=== PATIENT | female | born 1995 | race African-American/Black ===

== ENCOUNTER 2018-09-29 22:57 | Emergency (ER) | payer OTHER, SELFPAY ==
[2018-09-30 00:43] LABS: #Basophils 0.1 thou/uL (0.0-0.2); #Eosinphils 0.5 thou/uL (0.0-0.7); #Lymphocytes 1.9 thou/uL (1.20-3.40); #Neutrophils 6.6 thou/uL (1.40-6.50); %Basophils 0.6 % (0.0-1.0); %Eosinophils 4.6 % (0.0-10.0); %Lymphocytes 19.1 % (21.0-51.0); %Monocytes 9.7 % (0.0-10.0); Hemoglobin 11.5 g/dL (12.0-16.0); Mean Corpuscular HGB CONC 33.9 g/dL (32.0-36.0); Mean Corpuscular Hemoglobin 30.1 pg (27.0-31.0); Mean Corpuscular Volume 88.7 fL (78.0-98.0); Mean Platelet Volume 7.6 fL (7.4-10.4); Platelet Count 282 thou/uL (130-400); RBC Distribution Width 12.3 % (11.5-14.5); Red Blood Cell (RBC) Count 3.82 mill/uL (4.20-5.40); White Blood Cell (WBC) Count 9.9 thou/uL (4.8-10.8)
[2018-09-30 01:04] LABS: ALT (SGPT) 11 U/L (8-55); AST (SGOT) 15 U/L (5-34); Albumin 3.3 g/dL (3.5-5.0); Alkaline Phosphatase 88 U/L (40-150); Anion Gap 12 mmol/L (10-20); BUN (Urea Nitrogen) 6 mg/dL (7.0-18.7); Bilirubin, Total 0.2 mg/dL (0.2-1.2); Calc. Creatinine Clearance 0 mL/min (70-130); Calcium 8.7 mg/dL (7.8-10.44); Carbon Dioxide 18 mmol/L (22-29); Chloride 111 mmol/L (98-107); Estimated GFR-MDRD Greater than 90; Globulin 3.7 g/dL (2.4-3.5); Glucose 86 mg/dL (70-105); Potassium 3.7 mmol/L (3.5-5.1); Sodium 137 mmol/L (136-145)
[2018-09-30 02:46] LABS: Bilirubin Negative (Negative); Blood, Urine Negative (Negative); Clarity CLEAR (Clear); Glucose, Urine (Dipstick) Negative (Negative); Leukocyte Negative (Negative); Nitrite Negative (Negative); Protein, Urine (Dipstick) Negative (Neg-Trace); Specific Gravity, Urine 1.016 (1.002-1.036); Urobilinogen 0.2 mg/dL (0.2-1.0); pH, Urine 6.5 (5.0-9.0)
== END 2018-09-30 01:16 | disposition home or self-care (01) ==
LOC: ERS 22:57
DX: O99.89 Other specified diseases and conditions complicating pregnancy, childbirth and the puerperium (principal); R55 Syncope and collapse; Z3A.34 34 weeks gestation of pregnancy
CPT/HCPCS: 36415; 80053; 81003; 85025; 96360

== ENCOUNTER 2018-09-30 01:20 | Day surgery (SDC) | payer OTHER ==
[2018-09-30 01:55] VITALS: BP 125/74; TEMP 98.4; BMI 31.2
--- NOTE | 2018-09-30 04:16 | PRG ---
DATE OF SERVICE: 09/30/2018 OB ER ENCOUNTER PRIMARY [employer] TECHNICAL OFFICER: Alexander Medel MD CHIEF COMPLAINT: Syncope and fall. HISTORY OF PRESENT ILLNESS: The patient is a 22-year-old, G1, P0 female with an intrauterine at 34 weeks and a day, who presented to the emergency room downstairs after having a syncopal episode. The patient was evaluated down there and brought up here for evaluation after being cleared. The patient reports that she fell after getting worked up and upset when her brother said he wanted to kill himself. She started to walk and got lightheaded and felt like passing out. The patient had enough awareness to help ensure that she lands on her side, she caught herself with her hand going down. The patient denies hurting herself on her hands, her elbow, her arms, her legs, or hips. She denies hitting her abdomen. She denies uterine contractions or vaginal bleeding. The patient also denies any fever. The patient does report head congestion and cold, which has been traveling through the family. The patient denies chest pain. Had some shortness of breath she attributes to her as it is hard sometimes to take a deep breath. She denies nausea, vomiting, diarrhea, or constipation. She denies any new rashes. She denies hip problems, knee problems, or muscle weakness. She denies vaginal bleeding or leakage of fluid. She denies urinary urgency. PAST MEDICAL HISTORY: Negative. PAST SURGICAL HISTORY: Negative. ALLERGIES: NO KNOWN DRUG ALLERGIES. MEDICATIONS: vitamins. SOCIAL HISTORY: Denies drug, alcohol, or tobacco use. OB LABS: Unavailable at the time of dictation. REVIEW OF SYSTEMS: Per HPI. PHYSICAL EXAMINATION: VITAL SIGNS: Blood pressure 114/69, heart rate of 100, temperature 98.4. GENERAL: She appears to be in no acute distress. She is alert and oriented, cooperative, and pleasant to interact with. HEAD: Normocephalic and atraumatic. LUNGS: Clear to auscultation bilaterally. HEART: Regular rate and rhythm. ABDOMEN: Soft, gravid, and nontender. EXTREMITIES: Nontender, nonedematous. : Exam has been deferred. heart tracing shows a baseline in the 130s with moderate long-term variability, positive 15 x 15 accelerations, and no significant deceleration. Tocometer shows some irritability, but no real contraction pattern. ASSESSMENT AND PLAN: The patient is a 22-year-old female with an intrauterine at 34 weeks and a day, who had an isolated syncopal episode at home after having excessive emotional stress. By history, it sounds like the patient had a vagal response and became lightheaded and was able to direct her fall such that she did not experience any direct trauma to her abdomen or any significant trauma to her body. The patient has been given reassurance, and fetus has a category 1 tracing. The patient will be discharged to home. She has a scheduled appointment tomorrow with her primary OB, Dr. Medel, which we have encouraged that she keep. Job ID: [id number]
== END 2018-09-30 02:15 | disposition home or self-care (01) ==
LOC: L&D/OP 01:20
PROVIDERS: ATTEND Obstetrics & Gynecology
DX: O99.89 Other specified diseases and conditions complicating pregnancy, childbirth and the puerperium (principal); R55 Syncope and collapse; F43.9 Reaction to severe stress, unspecified; Z3A.34 34 weeks gestation of pregnancy
CPT/HCPCS: 36415; 80053; 81003; 85025; 96360; 99282

== ENCOUNTER 2018-11-15 12:15 | Inpatient (IN) | payer OTHER ==
[2018-11-15 13:37] LABS: Amnisure Test No Membranes Rupture (No Rupture)
[2018-11-15 13:38] LABS: Amnisure Internal Control QC ACCEPTABLE (ACCEPTABLE)
[2018-11-15 14:09] VITALS: BMI 35.3
[2018-11-15] MEDS: Lactated Ringer's 1,000 ML IV SCH ×2 (15:45→21:05)
[2018-11-15] MEDS ORDERED: Butorphanol Tartrate 1 MG/ML VIAL SLOW IVP PRN (16:08)
[2018-11-15] MEDS ORDERED: Misoprostol 200 MCG TAB PR PRN (16:08)
[2018-11-15] MEDS ORDERED: Ondansetron PF 4 MG/2 ML Vial IVP PRN (16:08)
[2018-11-15] MEDS ORDERED: Ibuprofen 800 MG TAB PO PRN (16:08)
[2018-11-15] MEDS ORDERED: Lidocaine 1% (PF) 30 ML VIAL SC PRN (16:08)
[2018-11-15] MEDS ORDERED: HYDROcodone/Acetaminophen 5/325 mg Tablet PO PRN (16:08)
[2018-11-15] MEDS ORDERED: Carboprost 250 MCG/ML AMP IM PRN (16:08)
[2018-11-15] MEDS ORDERED: Methylergonovine 0.2 MG/ML VIAL IM PRN (16:08)
[2018-11-15] MEDS ORDERED: NS / Oxytocin 40 units/1000ml 1,000 ML IV PRN (16:08)
[2018-11-15] MEDS ORDERED: Diphenoxylate HCl/Atropine Tablet PO PRN (16:08)
[2018-11-15 16:25] LABS: Hemoglobin 12.2 g/dL (12.0-16.0); Mean Corpuscular HGB CONC 34.5 g/dL (32.0-36.0); Mean Corpuscular Hemoglobin 29.2 pg (27.0-31.0); Mean Corpuscular Volume 84.7 fL (78.0-98.0); Mean Platelet Volume 8.5 fL (7.4-10.4); Platelet Count 323 thou/uL (130-400); RBC Distribution Width 12.9 % (11.5-14.5); Red Blood Cell (RBC) Count 4.19 mill/uL (4.20-5.40); White Blood Cell (WBC) Count 9.3 thou/uL (4.8-10.8)
[2018-11-15] MEDS ORDERED: NS w/ Oxytocin 10 units 500 ML IV SCH (16:45)
[2018-11-15] MEDS: Misoprostol 100 MCG TAB PO SCH ×2 (17:00→21:05)
[2018-11-15 17:03] LABS: Syphilis Antibody Nonreactive (Nonreactive); Syphilis Antibody Index 0.05 S/CO (<1.00 Non-Reactive)
[2018-11-15 17:15] LABS: HBSAg Index 0.19 S/CO (0-0.99); HIV (1/2) Antibody/Antigen Non-Reactive (NonReactive); Hep B Surf Ag Non-Reactive S/CO (NonReactive)
[2018-11-16] MEDS ORDERED: Fentanyl 4 mcg/Bup 0.1% Cadd 100 ML ONE ×2 (03:32→11:58)
[2018-11-16] MEDS: Lactated Ringer's 1,000 ML IV SCH ×3 (03:35→16:14)
[2018-11-16] MEDS: Fentanyl 4 mcg/Bupivacaine 0.1% Cassette 100 ML EPIDURAL SCH ×2 (03:52→12:03)
[2018-11-16] MEDS ORDERED: Ondansetron PF 4 MG/2 ML Vial IVP PRN ×3 (03:56→23:01)
[2018-11-16] MEDS ORDERED: Eucerin (Mineral Oil/Petrolatum,White) 30 gm Jar TOP PRN ×2 (03:56→20:46)
[2018-11-16] MEDS ORDERED: ePHEDrine/0.9% NaCl/PF SYRINGE 50 mg/10 ml SLOW IVP PRN (03:56)
[2018-11-16] MEDS ORDERED: Acetaminophen 325 MG TAB PO PRN (03:56)
[2018-11-16] MEDS ORDERED: Naloxone HCl 0.4 mg/ml Vial IVP PRN ×4 (03:56→20:46)
[2018-11-16] MEDS ORDERED: diphenhydrAMINE 50 MG/ML VIAL IVP PRN ×2 (03:56→20:46)
[2018-11-16] MEDS ORDERED: Promethazine HCl 25 MG/ML VIAL IM PRN ×2 (03:56→20:46)
[2018-11-16] MEDS ORDERED: Lactated Ringer's 500 ML IV PRN (03:56)
[2018-11-16] MEDS ORDERED: Communication Order-Pharmacy FS SCH ×2 (04:00→21:00)
[2018-11-16] MEDS: Misoprostol 100 MCG TAB PO SCH (07:16)
[2018-11-16] MEDS: NS w/ Oxytocin 10 units 500 ML IV SCH ×2 (07:17→18:59)
[2018-11-16] MEDS ORDERED: Bicitra 30 ML UDCUP ONE (19:27)
[2018-11-16] MEDS ORDERED: Lidocaine 2% MPF 10 ML AMP (For Epidural Use) ONE (19:30)
[2018-11-16] MEDS ORDERED: Oxytocin 10 UNITS/ML VIAL ONE (19:30)
[2018-11-16] MEDS ORDERED: CEFAZOLIN 2 GM/50 ML-DEXTROSE 2 GM in Premix Bag 1 BAG IVPB SCH (19:30)
[2018-11-16] MEDS ORDERED: Morphine PF 1 MG/ML SYR ONE (19:30)
[2018-11-16] MEDS ORDERED: Ondansetron PF 4 MG/2 ML Vial ONE (19:30)
[2018-11-16] MEDS ORDERED: CEFAZOLIN/Water 2 GM/20 ML SYRINGE SLOW IVP SCH (19:45)
[2018-11-16] MEDS ORDERED: Bicitra 30 ML UDCUP PO SCH (19:45)
[2018-11-16] MEDS ORDERED: Methylergonovine 0.2 MG/ML VIAL ONE (20:36)
[2018-11-16] MEDS ORDERED: Carboprost 250 MCG/ML AMP ONE ×2 (20:36→20:37)
[2018-11-16] MEDS ORDERED: Ondansetron HCl/PF 4 MG/2 ML Vial IVP PRN (20:46)
[2018-11-16] MEDS ORDERED: L&D-Morphine 4 MG/ML VIAL SLOW IVP PRN (20:46)
[2018-11-16] MEDS ORDERED: Naloxone HCl 0.4 mg/ml Vial IV PRN (20:46)
[2018-11-16] MEDS ORDERED: Ketorolac Tromethamine 30 MG/ML VIAL IVP PRN (20:46)
[2018-11-16] MEDS ORDERED: Promethazine HCl 25 MG SUPP PR PRN (20:46)
[2018-11-16] MEDS ORDERED: HYDROmorphone 2 MG/ML VIAL SLOW IVP PRN (20:46)
[2018-11-16] MEDS ORDERED: Ketorolac Tromethamine 30 MG/ML VIAL IVP SCH (21:00)
[2018-11-16] MEDS ORDERED: Promethazine HCl 25 MG/ML VIAL ONE (21:16)
[2018-11-16] MEDS ORDERED: Ketorolac Tromethamine 30 MG/ML VIAL ONE (21:16)
[2018-11-16] MEDS: Meperidine HCl/PF 25 MG/ML VIAL SLOW IVP PRN ×2 (21:51→22:01)
[2018-11-16] MEDS ORDERED: Meperidine HCl/PF 25 MG/ML VIAL ONE ×2 (22:00→22:01)
[2018-11-16] MEDS ORDERED: Bisacodyl 10 MG SUPP PR PRN (23:01)
[2018-11-16] MEDS ORDERED: diphenhydrAMINE 25 MG CAP PO PRN (23:01)
[2018-11-16] MEDS ORDERED: Lactated Ringer's 1,000 ML IV SCH (23:01)
[2018-11-16] MEDS ORDERED: Ibuprofen 800 MG TAB PO SCH (23:01)
[2018-11-16] MEDS ORDERED: NS / Oxytocin 40 units/1000ml 1,000 ML IV SCH (23:01)
[2018-11-17] MEDS: Ferrous Sulfate 325 MG TAB PO SCH ×3 (01:58→23:32)
[2018-11-17] MEDS: Docusate Calcium (SURFAK) 240 MG CAP PO SCH ×4 (01:58→21:07)
[2018-11-17] MEDS ORDERED: Ketorolac Tromethamine 30 MG/ML VIAL IVP PRN (02:01)
[2018-11-17] MEDS ORDERED: Meperidine HCl/PF 25 MG/ML VIAL IM PRN (02:28)
[2018-11-17 06:13] LABS: Hemoglobin 10.4 g/dL (12.0-16.0); Mean Corpuscular HGB CONC 33.9 g/dL (32.0-36.0); Mean Corpuscular Hemoglobin 28.9 pg (27.0-31.0); Mean Corpuscular Volume 85.2 fL (78.0-98.0); Mean Platelet Volume 7.9 fL (7.4-10.4); Platelet Count 250 thou/uL (130-400); RBC Distribution Width 12.8 % (11.5-14.5); Red Blood Cell (RBC) Count 3.59 mill/uL (4.20-5.40); White Blood Cell (WBC) Count 10.2 thou/uL (4.8-10.8)
[2018-11-17] MEDS: Prenatal Vitamin 1 TAB PO SCH (08:33)
[2018-11-17] MEDS: HYDROcodone/Acetaminophen 5/325 mg Tablet PO PRN ×4 (08:34→21:07)
[2018-11-17] MEDS: Ibuprofen 800 MG TAB PO SCH ×2 (13:44→21:06)
[2018-11-17] MEDS: Simethicone Chewable 80 MG TAB PO PRN ×2 (13:50→17:14)
[2018-11-18] MEDS: Simethicone Chewable 80 MG TAB PO PRN ×2 (00:20→17:20)
[2018-11-18] MEDS: HYDROcodone/Acetaminophen 5/325 mg Tablet PO PRN ×5 (02:41→22:07)
[2018-11-18] MEDS: Ibuprofen 800 MG TAB PO SCH ×3 (05:33→22:07)
[2018-11-18] MEDS: Prenatal Vitamin 1 TAB PO SCH (09:28)
[2018-11-18] MEDS: Ferrous Sulfate 325 MG TAB PO SCH ×2 (09:28→22:13)
[2018-11-18] MEDS: Docusate Calcium (SURFAK) 240 MG CAP PO SCH ×2 (09:29→22:07)
--- NOTE | 2018-11-18 11:15 | OP ---
DATE OF PROCEDURE: 11/16/2018 PREOPERATIVE DIAGNOSES: 1. Term . 2. Arrest of dilation. POSTOPERATIVE DIAGNOSES: 1. Term . 2. Arrest of dilation. 3. macrosomia. 4. Occiput transverse presentation. PROCEDURE PERFORMED: Primary low cervical transverse . ANESTHESIA: Epidural. DESCRIPTION OF PROCEDURE: After informed consent was obtained from the patient, she was taken to the operating room after her anesthesia was redosed. She was prepped and draped in the usual sterile fashion. Once it was adequate, a Pfannenstiel incision was created with a #10 scalpel blade and carried down to the fascia. The fascia was nicked in the midline. The fascial incision was extended transversely with Mcclure scissors. The superior fascial segments were grasped with Arianna and elevated, and the underlying rectus muscles were dissected away, first bluntly and then sharply. This was repeated with the inferior fascial segments. The rectus muscles were divided in the midline with blunt dissection. The peritoneum was entered bluntly. An Saman O rectractor was placed. The uterus was entered in a low transverse fashion with a clean #10 scalpel blade. vertex was delivered on to the operative field, and the remainder of the delivered uneventfully and atraumatically. Cord was clamped x2 and a vigorous male infant was handed to the staff in attendance. Cord blood was obtained. The placenta was manually extracted. The uterus was exteriorized, and freed of clots and debris. The uterus was repaired with a running locking suture of 0 Vicryl in a single full-thickness layer, followed by a series of [id number] sutures along the incision line for hemostasis, which was observed. The abdomen was copiously irrigated with saline. Seprafilm was applied to the repaired uterine incision and the anterior uterine fundus. The uterus was returned to the abdomen after the Saman retractor was removed. Hemostasis of the incision was again observed. The peritoneum was repaired with a running suture of 3-0 Vicryl. The facia was repaired with a running suture of 0 PDS. Three interrupted sutures of 3-0 Vicryl were placed in the subdermal layer to reapproximate the skin, which was closed with skin trevor. Sponge and instrument counts were correct x4. She tolerated the procedure well and suffered no acute complications. She was taken to recovery room in stable condition and the to the nursery in stable condition. SPECIMENS: None. COMPLICATIONS: None. FINDINGS: Viable male infant. Apgars of 9 and 9 at one and five minutes respectively, 9 pounds 4 ounces. Job ID: [id number]
[2018-11-18] MEDS ORDERED: Bupivacaine HCl 0.5%/Epinephrine 1:200,000/PF 30 ml Vial ONE (13:48)
[2018-11-19] MEDS: Simethicone Chewable 80 MG TAB PO PRN (06:05)
[2018-11-19] MEDS: Ibuprofen 800 MG TAB PO SCH ×2 (06:05→13:30)
[2018-11-19 08:22] VITALS: BP 111/76; TEMP 97.9
[2018-11-19] MEDS: Docusate Calcium (SURFAK) 240 MG CAP PO SCH (08:26)
[2018-11-19] MEDS: Prenatal Vitamin 1 TAB PO SCH (08:26)
[2018-11-19] MEDS: HYDROcodone/Acetaminophen 5/325 mg Tablet PO PRN ×2 (08:26→13:28)
[2018-11-19] MEDS: Ferrous Sulfate 325 MG TAB PO SCH (13:37)
== END 2018-11-19 17:15 | disposition home or self-care (01) | DRG 788 ==
LOC: L&D/OP 12:15 → L&D 14:48 → 3SW 11-16 23:28
PROVIDERS: ADMIT Family Medicine; ATTEND Family Medicine
PROC: 10D00Z1 Extraction of Products of Conception, Low, Open Approach (ICD-10-PCS; principal; 2018-11-16)
PROC: 4A1HXCZ Monitoring of Products of Conception, Cardiac Rate, External Approach (ICD-10-PCS; 2018-11-16)
PROC: 4A1HXFZ Monitoring of Products of Conception, Cardiac Rhythm, External Approach (ICD-10-PCS; 2018-11-16)
DX: O62.0 Primary inadequate contractions (principal); O48.0 Post-term pregnancy; Z3A.41 41 weeks gestation of pregnancy; Z37.0 Single live birth; O76 Abnormality in fetal heart rate and rhythm complicating labor and delivery; O69.81X0 Labor and delivery complicated by cord around neck, without compression, not applicable or unspecified; O36.63X0 Maternal care for excessive fetal growth, third trimester, not applicable or unspecified
CPT/HCPCS: 36415; 51702; 84112; 85027; 86780; 86850; 86900; 86901; 87340; 87389; 99285; J0595; J0670; J1885; J2001; J2175; J2210; J2274; J2405; J2550; J2590; J3490